=== PATIENT | male | born 1980 | race Two or more races ===

== ENCOUNTER 2025-04-13 00:25 | Inpatient (IN) | payer OTHER ==
[~2025-04-13] VITALS: Ht 180.3 cm; Wt 180.0 kg
[2025-04-13 02:41] LABS: PLATELET COUNT (AUTO) 149 K/uL (150-450); RED BLOOD CELL COUNT(AUTO) 4.14 MIL/uL (4.50-5.90); RED CELL DISTRIBUTION WIDTH 12.6 % (11.5-14.5); WHITE BLOOD COUNT (AUTO) 5.1 K/uL (4.5-11.0)
[2025-04-13 02:51] LABS: CALCIUM, TOTAL 8.3 mg/dL (8.8-10.5); CREATININE 0.72 mg/dL (0.60-1.30); GLOMERULAR FILTR. RATE CALC > 60 mL/min (>60); GLUCOSE,RANDOM 104 mg/dL (70-110); SODIUM SERUM 139 mmol/L (136-145); UREA NITROGEN, BLOOD 19 mg/dL (7-18)
[2025-04-13] MEDS ORDERED: DICYCLOMINE HCL 10 MG CAPSULE PO PRN (10:15)
[2025-04-13] MEDS ORDERED: METOCLOPRAMIDE HCL 5 MG/ML 2 ML VIAL IVP PRN (10:15)
[2025-04-13] MEDS ORDERED: LOPERAMIDE HCL 2 MG CAPSULE PO PRN (10:15)
[2025-04-13 10:19] VITALS: BP 132/87; PULSE 68; RESP 18; TEMP 97.7; O2SAT 100
[2025-04-13] MEDS: SODIUM CHLORIDE 0.9% 1,000 ML IV ONE (11:02)
[2025-04-13 13:01] LABS: ALCOHOL, URINE DRUG SCREEN NEGATIVE (NEGATIVE); AMPHET/METH SCREEN,URINE NEGATIVE (NEGATIVE); BARBITURATE SCREEN, URINE NEGATIVE (NEGATIVE); CANNABINOID SCREEN,URINE NEGATIVE (NEGATIVE); COCAINE SCREEN,URINE NEGATIVE (NEGATIVE); METHADONE SCREEN, URINE NEGATIVE (NEGATIVE)
[2025-04-13 13:02] LABS: APPEARANCE,URINE CLEAR (CLEAR); GLUCOSE, URINE (UA) NEGATIVE (NEGATIVE); LEUKOCYTE ESTERASE ,URINE NEGATIVE (NEGATIVE); NITRATE,URINE NEGATIVE (NEGATIVE); OCCULT BLOOD,URINE NEGATIVE (NEGATIVE); PH,URINE DRUG SCREEN 6.5 (5.0-8.0); SPECIFIC GRAVITIY, URINE 1.031 (1.003-1.030)
[2025-04-13 15:30] VITALS: BP 111/67; PULSE 59; RESP 18; TEMP 97.9; O2SAT 100
[2025-04-13 17:16] VITALS: BP 111/67; PULSE 59; RESP 18; TEMP 97.9; O2SAT 100
[2025-04-13 19:43] VITALS: BP 120/73; PULSE 60; RESP 18; TEMP 98.1; O2SAT 98
[2025-04-13] MEDS: TEMAZEPAM 15 MG CAPSULE PO SCH (20:29)
[2025-04-14 05:12] VITALS: BP 127/84; PULSE 60; RESP 18; TEMP 97.9; O2SAT 98
[2025-04-14 06:09] LABS: CALCIUM, TOTAL 8.8 mg/dL (8.8-10.5); CREATININE 0.68 mg/dL (0.60-1.30); GLOMERULAR FILTR. RATE CALC > 60 mL/min (>60); GLUCOSE,RANDOM 95 mg/dL (70-110); SODIUM SERUM 138 mmol/L (136-145); UREA NITROGEN, BLOOD 11 mg/dL (7-18)
[2025-04-14] MEDS: LORazepam 2 MG/ML VIAL IVP PRN (06:12)
[2025-04-14 06:15] LABS: PLATELET COUNT (AUTO) 152 K/uL (150-450); RED BLOOD CELL COUNT(AUTO) 4.75 MIL/uL (4.50-5.90); RED CELL DISTRIBUTION WIDTH 13.3 % (11.5-14.5); WHITE BLOOD COUNT (AUTO) 6.3 K/uL (4.5-11.0)
[2025-04-14 08:31] VITALS: BP 130/86; PULSE 71; RESP 18; TEMP 98.1; O2SAT 100
[2025-04-14 15:22] VITALS: BP 134/84; PULSE 72; RESP 18; TEMP 98.1; O2SAT 97
[2025-04-14] MEDS: MELATONIN 3 MG TABLET PO SCH (20:10)
[2025-04-14 20:21] VITALS: BP 121/68; PULSE 72; RESP 18; TEMP 98.4; O2SAT 95
[2025-04-14] MEDS ORDERED: BUPRENORPHINE HCL/NALOXONE HCL 2-0.5 MG SUBLINGUAL TABLET SL SCH (21:00)
[2025-04-15 05:42] VITALS: BP 121/84; PULSE 68; RESP 18; TEMP 97.9; O2SAT 95
[2025-04-15 06:12] LABS: PLATELET COUNT (AUTO) 178 K/uL (150-450); RED BLOOD CELL COUNT(AUTO) 4.77 MIL/uL (4.50-5.90); RED CELL DISTRIBUTION WIDTH 12.5 % (11.5-14.5); WHITE BLOOD COUNT (AUTO) 8.9 K/uL (4.5-11.0)
[2025-04-15 06:17] LABS: CALCIUM, TOTAL 9.1 mg/dL (8.8-10.5); CREATININE 0.73 mg/dL (0.60-1.30); GLOMERULAR FILTR. RATE CALC > 60 mL/min (>60); GLUCOSE,RANDOM 101 mg/dL (70-110); SODIUM SERUM 137 mmol/L (136-145); UREA NITROGEN, BLOOD 15 mg/dL (7-18)
[2025-04-15 08:26] VITALS: BP 130/89; PULSE 74; RESP 18; TEMP 98.4; O2SAT 97
[2025-04-15] MEDS: ESZOPICLONE 2 MG TABLET PO ONE (12:40)
== END 2025-04-15 20:33 | DRG 897 ==
LOC: EMS 00:33 → EDH 06:17 → 6N 08:49
PROVIDERS: ADMIT Hospitalist; ATTEND Hospitalist
DX: F11.23 Opioid dependence with withdrawal (principal); E87.3 Alkalosis; D64.9 Anemia, unspecified; K59.00 Constipation, unspecified; G47.00 Insomnia, unspecified; F41.9 Anxiety disorder, unspecified; D69.6 Thrombocytopenia, unspecified
CPT/HCPCS: 80048; 80307; 81003; 85025; 99285; J2060; J7030